=== PATIENT | female | born 1985 | race Hispanic/Latino ===

== ENCOUNTER 2017-07-11 12:08 | Emergency (ER) | payer BC, MEDICAID, OTHER ==
[2017-07-11] MEDS ORDERED: LIDOCAINE HCL 1% 20 ML VIAL ONE (12:34)
[2017-07-11] MEDS ORDERED: SILVER NITRATE APPLICATOR 1 SWAB TP ONE (12:34)
[2017-07-11] MEDS ORDERED: BUPIVACAINE/PF 0.5% 30ML VIAL ONE (12:34)
== END 2017-07-11 13:25 | disposition home or self-care (01) ==
LOC: EDH 12:08
DX: L98.0 Pyogenic granuloma (principal)
CPT/HCPCS: 64450; 99284; J3490